=== PATIENT | female | born 1990 | race Caucasian/White ===

== ENCOUNTER 2017-09-03 00:32 | Outpatient (CLI) | payer MEDICAID ==
[~2017-09-03] VITALS: Ht 195.6 cm; Wt 113.0 kg
[2017-09-03 00:52] LABS: DAU SCREEN DISCLAIMER
== END 2017-09-03 04:40 | disposition home or self-care (01) ==
LOC: LDOP 00:32
PROVIDERS: ATTEND Obstetrics & Gynecology
DX: O62.9 Abnormality of forces of labor, unspecified (principal); O99.333 Smoking (tobacco) complicating pregnancy, third trimester; F17.200 Nicotine dependence, unspecified, uncomplicated; Z3A.36 36 weeks gestation of pregnancy
CPT/HCPCS: 59025; 80307; 81001; 87086; 99211; G0463; G0479